=== PATIENT | female | born 1970 | race Caucasian/White ===

== ENCOUNTER 2020-11-08 17:09 | Emergency (ER) | payer OTHER ==
[2020-11-08 17:32] LABS: BILIRUBIN NEGATIVE (NEGATIVE); BLOOD 3+ Ery/uL (NEGATIVE); CLARITY HAZY (CLEAR); COLOR YELLOW (YELLOW); GLUCOSE (U) NORMAL (NORMAL); LEUKOCYTES 2+ Leu/uL (NEGATIVE); NITRITE NEGATIVE (NEGATIVE); PROTEIN NEGATIVE (NEGATIVE); SPECIFIC GRAVITY <=1.005 (1.001-1.030); UROBILINOGEN 0.2 mg/dL (0.2-1.0)
[2020-11-08 17:38] LABS: BACTERIA 1+
[2020-11-08] MEDS ORDERED: BACTRIM DS TAB1 EACH PO (18:32)
[2020-11-08] MEDS ORDERED: PYRIDIUM100 MG PO (18:32)
== END 2020-11-08 18:59 | disposition home or self-care (01) ==
LOC: FER 17:09
PROVIDERS: Internal Medicine
DX: N39.0 Urinary tract infection, site not specified (principal)
CPT/HCPCS: 81001; 99283; J1885

== ENCOUNTER 2022-06-23 10:28 | Emergency (ER) | payer OTHER ==
[~2022-06-23 10:28] MED LIST: BACTRIM DS TAB1 EACH PO; PYRIDIUM100 MG PO
[2022-06-23 11:45] LABS: BILIRUBIN 1+ mg/dL (NEGATIVE); BLOOD 3+ Ery/uL (NEGATIVE); CLARITY CLEAR (CLEAR); COLOR YELLOW (YELLOW); GLUCOSE (U) NORMAL (NORMAL); LEUKOCYTES TRACE Leu/uL (NEGATIVE); NITRITE NEGATIVE (NEGATIVE); PROTEIN 2+ mg/dL (NEGATIVE); SPECIFIC GRAVITY >=1.030 (1.001-1.030); pH 5.5 (5.0-9.0)
[2022-06-23 11:47] LABS: BASOPHIL 0.7 % (0-2); EOSINOPHIL 0.1 % (0-5); HCT 45.2 % (37.0-47.0); LYMPHOCYTE 11.6 % (15-48); MCH 33.3 pg (25.0-31.0); MCHC 35.4 g/dL (32.0-36.0); MONOCYTE 14.9 % (0-12); MPV 9.8 fL (6.0-9.5); NEUTROPHIL 69.1 % (41-80); NRBC 0; PLT 155 K/uL (150-400); RBC 4.81 M/uL (4.20-5.40); WBC 7.5 K/uL (4.0-10.5)
[2022-06-23 11:52] LABS: AMORPHOUS URATES CRYSTALS TRACE; BACTERIA 1+
[2022-06-23 12:05] LABS: BUN/CREAT RATIO (CALC) 21.3 RATIO; CREATININE 0.75 mg/dL (0.51-0.95); POTASSIUM 3.3 mmol/L (3.5-5.1)
[2022-06-23 12:11] LABS: LACTIC ACID 1.7 mmol/L (0.4-1.9)
[2022-06-23] MEDS ORDERED: ONDANSETRON ODT4 MG PO (14:34)
== END 2022-06-23 15:00 | disposition home or self-care (01) ==
LOC: FER 10:28
PROVIDERS: Emergency Medicine
DX: N10 Acute pyelonephritis (principal); R91.1 Solitary pulmonary nodule; F17.210 Nicotine dependence, cigarettes, uncomplicated
CPT/HCPCS: 36415; 80048; 81001; 83605; 85025; 87040; 87088; J2405; J7030